=== PATIENT | female | born 1970 | race Caucasian/White ===

== ENCOUNTER 2020-01-23 20:17 | Emergency (ER) | payer MEDICARE, MEDICAID ==
[~2020-01-23] VITALS: Ht 170.2 cm; Wt 81.6 kg
[~2020-01-23 20:17] MED LIST: ALBUTEROL SULF8.5 GM INH; AZITHROMYCIN250 MG ORAL; BENADRYL25 MG ORAL; MEDROL DOSEPAK4 MG ORAL; PROMETHAZINE-D118 ML ORAL
[2020-01-23] MEDS ORDERED: NORCO 5-325 TA1 EAC1 ORAL (20:20)
[2020-01-23] MEDS ORDERED: ATENOLOL25 MG ORAL (20:20)
[2020-01-23] MEDS ORDERED: GABAPENTIN100 MG ORAL (20:20)
--- NOTE | 2020-01-23 20:35 | NUR ---
ED Nurse Note: pt would like to sign out against medical advice at this time. risks of leaving were explained to the pt, she would still like to leave, states that she feels better and that she "does not want to go through this again." states that she is feeling better. pt called her to pick her up, she originally arrived via ambulance. pt left taking all belongings with her.
[2020-01-23 20:37] VITALS: BP 106/100
--- NOTE | 2020-01-23 20:58 | Emergency Room Report ---
History of Present Illness General Chief Complaint: Behavioral Complaint Present Illness HPI 49-year-old female with extensive history of anxiety brought in by paramedics after her called paramedics due to patient having elevated heart rate. Patient denies any chest pain or shortness of breath upon arrival. Patient denies any pain upon arrival and denies SI and HI. Patient signed AGAINST MEDICAL ADVICE for being seen. Patient has full judgment making this decision. I examined the patient patient was being triaged in the ambulance bay, patient has full judgment making this decision at this time. 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 Review of Systems All Other Systems: negative except mentioned in HPI Physical Exam Vital Signs Date Time Temp Pulse Resp B/P (MAP) Pulse Ox O2 Delivery O2 Flow Rate FiO2 01/22/ 20:20 99.0 96 19 106/100 (102) 100 Room Air Sp02 EP Interpretation: reviewed, normal General Appearance: well appearing Head: normocephalic Eyes: bilateral eye normal inspection, bilateral eye PERRL Cardiovascular #1: regular rate, rhythm Musculoskeletal: back normal Neurologic: alert, oriented Psychiatric: judgement/insight normal, memory normal, mood/affect normal, no suicidal/homicidal ideation Skin: no rash Lymphatic: no adenopathy Medical Decision Making PA Attestation All my diagnosis and treatment plans were reviewed ad discussed with my supervising physician Dr. Younger Diagnostic Impression: Primary Impression: Left against medical advice ER Course 49-year-old female with extensive history of anxiety brought in by paramedics after her called paramedics due to patient having elevated heart rate. Patient denies any chest pain or shortness of breath upon arrival. Patient denies any pain upon arrival and denies SI and HI. Patient signed AGAINST MED ICA ADVICE for being seen. Patient has full judgment making this decision. I examined the patient patient was being triaged in the ambulance bay, patient has full judgment making this decision at this time. Ddx considered but are not limited to: generalized anxiety disorder, panic attack, depression with psycotic featurs, bipolar disorder, drug overdose Vital signs: are WNL, pt. is afebrile H&PE are most consistent with: Left AGAINST MEDICAL ADVICE ORDERS: none required at this time, the diagnosis is clinical ED INTERVENTIONS: None required at this time. Patient was evaluated in the context of the global COVID-19 pandemic, which necessitated consideration that the patient might be at risk for infection with the SARS-COV-2 virus that causes COVID-19. Institutional protocols and algorithms that pertain to the evaluation of patients at risk for COVID-19 are in a state of rapid change based on information relieved by multiple regulatory bodies including the CDC and the federal and state organizations. These policies and algorithms were followed during the patient's care in the ED. Patient left AGAINST MEDICAL ADVICE. Last Vital Signs Date Time Temp Pulse Resp B/P (MAP) Pulse Ox O2 Delivery O2 Flow Rate FiO2 01/23/20 20:39 96 19 Room Air 01/23/20 20:37 99.0 106/100 100 Disposition: AGAINST MEDICAL ADVICE Condition: Stable Riaz Phan Jan 23, 2020 20:58
== END 2020-01-23 20:50 | disposition left against medical advice (07) ==
LOC: EDBD 20:17 → EMR 20:35
DX: R00.9 Unspecified abnormalities of heart beat (principal); Z53.29 Procedure and treatment not carried out because of patient's decision for other reasons; Z85.89 Personal history of malignant neoplasm of other organs and systems; Z88.6 Allergy status to analgesic agent
CPT/HCPCS: 99281